=== PATIENT | male | born 1990 | race Caucasian/White ===

== ENCOUNTER 2020-08-19 23:58 | Emergency (ER) | payer OTHER, SELFPAY ==
--- NOTE | ~2020-08-19 | XR_ITS ---
EXAMINATION: XR chest 1V portable DATE: 08/20/2020 00:28 INDICATION: Midline chest pain and shortness of breath. TECHNIQUE: frontal view of the chest was obtained. COMPARISON: Chest radiograph dated 06/06/2008 FINDINGS: The lungs remain clear with no focal airspace opacities, pulmonary edema, pleural effusion or pneumot horax. The cardiomediastinal silhouette is normal. Visualized bones and soft tissues are unremarkable . IMPRESSION: 1. No acute cardiopulmonary disease. 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
--- NOTE | ~2020-08-19 | CT_ITS ---
EXAMINATION: CTA chest PE protocol DATE: 08/20/2020 01:06 INDICATION: Chest pain and shortness of breath. TECHNIQUE: Computed tomography (CT) pulmonary angiogram of the chest was performed with 100 mL Omnipa que-350 intravenous contrast. Additional 3D reconstructions utilizing coronal maximum intensity proje ction (MIP) were performed. Automated exposure control and iterative reconstruction technique were em ployed. The dose-length product was 1007.66 mGy-cm. COMPARISON: None FINDINGS: Suboptimal contrast opacification of the pulmonary arteries. There is moderate streak artifact from d ense contrast in the superior vena cava and right atrium. Mild scattered respiratory motion artifact most prominent in the left lower lung zone. No definite pulmonary embolism although sensitivity is de creased in small of the smaller subsegmental and basilar segmental pulmonary arteries. Mild dependent atelectasis in the bilateral lower lobes, right greater than left. No pneumonia, pulmonary edema, pl eural effusion or pneumothorax. Heart size is normal. No pericardial effusion. Thoracic aorta is norm al caliber with no dissection. Calcified right hilar lymph nodes consistent with old granulomatous di sease. No pathologically enlarged thoracic lymphadenopathy. Bilateral gynecomastia. Visualized upper abdomen and bones are unremarkable. IMPRESSION: 1. No evident pulmonary embolism. Sensitivity decreased in some of the smaller subsegmental and basil ar segmental pulmonary arteries due to combination of suboptimal contrast opacification, streak and r espiratory motion artifact. 2. Mild dependent atelectasis in the bilateral lower lobes. No other acute cardiopulmonary disease. Reviewed, dictated and finalized at location A. 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 No evident pulmonary embolism. Sensitivity decreased in some of the smaller subsegmental and basilar segmental pulmonary arteries due to combination of sub optimal contrast opacification, streak and respiratory motion artifact. 2. Mild dependent atelectasis in the bilateral lower lobes. No other acute card iopulmonary disease.
[2020-08-20 00:03] VITALS: BP 190/105; PULSE 76; RESP 16; TEMP 36.7; O2SAT 98
--- NOTE | 2020-08-20 00:10 | ECG_ITS ---
Measurements Intervals [place] Rate: 70 P: 29 TN: 158 QRS: 5 QRSD: 84 T: 6 QT: 359 QTc: 388 Interpretive Statements SINUS RHYTHM ST ELEVATION IN DIFFUSE LEADS, CONSIDER PERICARDITIS OR EARLY REPOLARIATION A ABNORMALITY BASELINE ARTIFACT- I, II, III, AVR, AVL,A VF ABNORMAL ECG Electronically Signed On 08-20-2020 14:12:51 OUT PATIENT THERAPIST by Korey Eric D.O.
[2020-08-20 00:11] VITALS: PULSE 68
[2020-08-20 00:17] LABS: Basophils Absolute Auto 0.1 K/mm3 (0.0-0.1); Basophils Percent Auto 0.7 % (0.2-1.2); Eosinophils Absolute Auto 0.1 K/mm3 (0-0.3); Eosinophils Percent Auto 0.9 % (0-4.4); Hematocrit 50.6 % (42.0-52.0); Hemoglobin 16.9 g/dL (14.0-18.0); Immature Granulocyte Absolute 0.04 K/mm3 (0.00-0.031); Immature Granulocyte Percent A 0.4 % (0-0.5); Lymphocytes Absolute Auto 1.94 K/mm3 (0.9-3.2); Lymphocytes Percent Auto 17.9 % (18.3-44.2); Mean Corpuscular HGB Conc 33.4 g/dl (32-36); Mean Corpuscular Hemoglobin 31.1 pg (26-34); Mean Corpuscular Volume 93.2 fl (80-100); Mean Platelet Volume 10.4 fl (7.4-10.4); Monocytes Percent Auto 8.9 % (2.6-8.5); Neutrophils Absolute Auto 7.7 K/mm3 (1.3-6.7); Neutrophils Percent Auto 71.2 % (45.5-73.1); Platelet Count Result 290 k/mm3 (150-375); Red Blood Count 5.43 M/mm3 (4.6-6.20); Red Cell Distribution Width 11.9 % (11.5-14.5); White Blood Count 10.8 K/mm3 (4.5-10.0)
[2020-08-20 00:28] LABS: Potassium 3.8 mmol/L (3.4-5.0)
[2020-08-20 00:29] LABS: Alanine Aminotransferase 53 U/L (4-50); Albumin Level 4.8 g/dL (3.5-5.1); Alkaline Phosphatase 74 U/L (38-126); Anion Gap 10 mmol/L (8-16); Aspartate Amino Transferase 41 U/L (17-59); Bilirubin,Total 0.8 mg/dL (0.2-1.3); Blood Urea Nitrogen 15 mg/dL (9-20); Calcium 9.7 mg/dL (8.4-10.2); Carbon Dioxide 31 mmol/L (22-30); Chloride 98 mmol/L (98-107); Estimated CRCL calculation 143 ml/min; Estimated Glomerular Filt Rate > 60; Glucose 105 mg/dL (75-110); Lipase 319 U/L (23-300); Sodium 139 mmol/L (137-145)
[2020-08-20 00:31] LABS: INR 0.8; Partial Thromboplastin Time 25.3 SECONDS (22.3-36.8); Prothrombin Time 11.9 Seconds (11.1-14.7)
[2020-08-20 00:34] LABS: D Dimer 0.39 ug/mL (<0.48)
[2020-08-20] MEDS: KETOROLAC 15 MG/ML VIAL (*BKC) IV PUSH (00:34)
[2020-08-20 00:41] LABS: NT Pro B Type Natriuretic Pept 51 PG/ML (5-100); Troponin I < 0.012 ng/mL (0.000-0.034)
--- NOTE | 2020-08-20 00:57 | ED.GENADULT ---
HPI - General Adult General Chief complaint: Chest Pain Stated complaint: chest pain/SOB Time Seen by Provider: 08/20/20 00:04 History of Present Illness HPI narrative: Patient is a 29-year-old gentleman who presents to emergency department with chief complaint of chest pain. Patient states that today he started having tightness in his chest and also started having shortness of breath. Patient does report that over the last several days he has had some mild has not felt well. Patient denies fever reports that he was seen at a local urgent care and told to come to the emergency department for further evaluation. The patient was seen at the urgent care and had an EKG that showed no ST elevation or ST depression Related Data Home Medications Medication Instructions Recorded Confirmed No Home Medications 08/20/20 08/20/20 Allergies Allergy/AdvReac Type Severity Reaction Status Date / Time No Known Allergies Allergy Unverified 08/20/20 00:09 Review of Systems Review of Systems: Narrative: A 10 system review of systems was completed on the patient and is negative except for what is stated in the HPI. Nursing and ancillary documentation was reviewed. [facility] Social History Social History Gender identity (if verbalized by the patient): Male Comments Patient denies significant past medical history Family history patient reports his grandfather had cardiac disease in his 40s but denies any history of connective tissue disorder or clotting disorder. Social history patient smokes cigarettes Exam Narrative: Exam Narrative: GENERAL: Well-appearing, well-nourished, and in no acute distress. HEAD: Normocephalic, atraumatic. EYES: PERRLA and EOMI. ENT: Nares clear, no rhinorrhea or epistaxis. Mucous membranes moist. NECK: Supple. CHEST: Clear to auscultation. No respiratory distress. HEART: Regular rate and rhythm. No murmur heard. Normal peripheral pulses. ABDOMEN: Soft, nontender, nondistended, normal active bowel sounds. EXTREMITIES: Normal range of motion. No edema. SKIN: Warm, dry, no rash. NEURO: No focal deficits. Alert and oriented x3. PSYCH: Normal mood and affect. Course Course Emergency Course: EKG shows sinus rhythm rate of [address] elevation or ST depression Chest x-ray shows no evidence of focal infiltrate CTA chest showed no evidence pulmonary embolism Vital Signs Vital signs: Vital Signs Temperature 36.7 C 08/20/20 00:03 Pulse Rate 76 08/20/20 00:03 Respiratory Rate 16 08/20/20 00:03 Blood Pressure 190/105 H 08/20/20 00:03 Pulse Oximetry 98 08/20/20 00:03 Temperature 36.7 C 08/20/20 00:03 Pulse Rate 68 08/20/20 00:11 Respiratory Rate 16 08/20/20 00:03 Blood Pressure 190/105 H 08/20/20 00:03 Pulse Oximetry 98 08/20/20 00:03 Medical Decision Making Vital Signs Vital Signs: Vital Signs Temperature 36.7 C 08/20/20 00:03 Pulse Rate 76 08/20/20 00:03 Respiratory Rate 16 08/20/20 00:03 Blood Pressure 190/105 H 08/20/20 00:03 Pulse Oximetry 98 08/20/20 00:03 Temperature 36.7 C 08/20/20 00:03 Pulse Rate 68 08/20/20 00:11 Respiratory Rate 16 08/20/20 00:03 Blood Pressure 190/105 H 08/20/20 00:03 Pulse Oximetry 98 08/20/20 00:03 Lab Data Result diagrams: 08/20/20 00:11 08/20/20 00:11 Labs: Lab Results 08/20/20 08/20/20 08/20/20 Range/Units 00:10 00:11 00:11 WBC 10.8 H (4.5-10.0) K/mm3 RBC 5.43 (4.6-6.20) M/mm3 Hgb 16.9 (14.0-18.0) g/dL Hct 50.6 (42.0-52.0) % MCV 93.2 (80-100) fl MCH 31.1 (26-34) pg MCHC 33.4 (32-36) g/dl RDW 11.9 (11.5-14.5) % Plt Count 290 (150-375) k/mm3 MPV 10.4 (7.4-10.4) fl Immature Gran % (Auto) 0.4 (0-0.5) % Neut % (Auto) 71.2 (45.5-73.1) % Lymph % (Auto) 17.9 L (18.3-44.2) % [place] % (Auto) 8.9 H (2.6-8.5) % Eos % (Auto)
[2020-08-20 02:32] VITALS: BP 163/97; PULSE 76; RESP 18; O2SAT 96
[2020-08-20 18:01] LABS: SARS-CoV-2 RNA PCR Negative
== END 2020-08-20 02:34 | disposition home or self-care (01) ==
PROVIDERS: Emergency Provider Emergency Medicine
DX: R07.89 Other chest pain (principal); B34.9 Viral infection, unspecified; Z20.828 Contact with and (suspected) exposure to other viral communicable diseases
CPT/HCPCS: 36415; 71045; 71275; 80053; 83690; 83880; 84484; 85025; 85380; 85610; 85730; 87635; 93005; 96374; 99284; C9803; J1885; Q9967; U0003

== ENCOUNTER 2020-11-13 15:44 | Emergency (ER) | payer OTHER, SELFPAY ==
[2020-11-13 15:47] VITALS: BP 164/104; PULSE 97; RESP 18; TEMP 36.2; O2SAT 100
--- NOTE | 2020-11-13 16:21 | ED.GENADULT ---
HPI - General Adult General Chief complaint: Dental/Oral Stated complaint: tooth pain, sent by dentist Time Seen by Provider: 11/13/20 16:10 History of Present Illness HPI narrative: Patient is a 30-year-old male otherwise healthy who comes emergency today complaining of pain and swelling in his left cheek. Notes that he had a toothache that started about 2 days ago and when he woke up this morning the pain and swelling were there. The pain is constant and hurts to open his mouth. He is having chills but denies fevers. Denies previous history of similar symptoms. Denies any voice changes or trouble swallowing. Denies any other symptoms or concerns. Notes that he went to went to his dentist office today and they recommended that he come here for further evaluation. Was last seen by his dentist 2 months ago for regular checkup. Related Data Home Medications Medication Instructions Recorded Confirmed No Home Medications 08/20/20 08/20/20 Allergies Allergy/AdvReac Type Severity Reaction Status Date / Time No Known Allergies Allergy Unverified 08/20/20 00:09 Review of Systems Constitutional: Constitutional: Reports as per HPI, Denies fever(s), Denies night sweats and Denies weakness ENT: Comments: See HPI for dental pain Cardiovascular: Cardiovascular: Denies chest pain, Denies edema, Denies leg edema, Denies dyspnea and Denies orthopnea Respiratory: Respiratory: Denies cough and Denies dyspnea Gastrointestinal: Gastrointestinal: Denies abdominal pain, Denies constipation, Denies diarrhea, Denies nausea and Denies vomiting Musculoskeletal: Musculoskeletal: Denies abnormal gait, Denies back pain, Denies numbness and Denies tingling Neurologic: Denies Abnormal speech present, Denies abnormal gait, Denies numbness, Denies tingling and Denies weakness Psychiatric: Psychiatric: Denies homicidal ideation and Denies suicidal ideation [facility] Social History Social History Gender identity (if verbalized by the patient): Male Exam Const: General: cooperative, healthy appearing, comfortable, no acute distress, well developed, alert, awake and Physically active Orientation/consciousness: patient oriented x3 HENMT: Head: normal to inspection, normocephalic and atraumatic Ears: external ears normal and TM's normal bilaterally General nose exam: Normal external nose present Face images: 1. Left cheek has mild overlying edema and some blanchable erythema. No induration or fluctuance. Teeth image: 1. There is an abscess approximately 1 cm diameter above molar #16. It was nondraining initially but when I palpated it started draining blood and pus. Throat: posterior oropharynx normal, tonsils normal, uvula midline, no peritonsillar masses, normal posterior oropharynx and uvula not displaced Eyes: General: appearance normal, both eyes and all related structures Pupils: Equal, round and reactive pupils present EOM: EOMs intact bilaterally Neck: Neck: normal visual inspection Chest: Chest palpation & inspection: normal inspection of the chest and no tenderness Resp: Effort & Inspection: normal respiratory effort and able to speak in complete sentences Auscultation: clear to auscultation bilaterally Cardio: Rate: regular rate Rhythm: regular rhythm GI: Inspection: normal to inspection GI Palp: No abdominal tenderness : General: Yes no CVA tenderness Back/Spine/Pelvis: Back: no CVA tenderness Skin: General skin exam: normal color and no rashes or lesions noted Lesions: no lesions Neuro: General: patient oriented x3, no focal motor deficits and CN's II-XI intact bilaterally Cranial nerves: Yes Equal, round and reactive pupils present Speech: No Abnormal speech present Extrem: General: normal to inspection and full ROM Psych: Appearance: grossly normal and well kempt Mental Status: mental status grossly normal Speech and movement: Normal speec
== END 2020-11-13 17:40 | disposition home or self-care (01) ==
PROVIDERS: Emergency Provider Emergency Medicine
DX: K04.7 Periapical abscess without sinus (principal)
CPT/HCPCS: 99283; A9270